=== PATIENT | female | born 1930 | race Two or more races ===

== ENCOUNTER 2018-12-06 12:04 | Inpatient (IN) | payer MEDICARE ==
[~2018-12-06] VITALS: Ht 170.2 cm; Wt 96.6 kg
--- NOTE | 2018-12-06 12:20 | NUR ---
DR GONZALEZ AT BEDSIDE
--- NOTE | 2018-12-06 12:22 | NUR ---
[facility] [employer] [facility] , "[place]ambulatory [place] bench passerby called." 5150 FOR BEING DANGER TO SELF AND GRAVELY DISABLED. TO ER BED 10, PT AOx1, HOOKED TO MONITOR, CHANGED TO GOWN, PROVIDED W WARM BLANKET, AWAITING MD YUAN.
[2018-12-06] MEDS ORDERED: IV NS 0.9% 1,000 ML BAG IV ONE (12:30)
--- NOTE | 2018-12-06 12:44 | NUR ---
ROTOR CASTING MACHINE OPERATOR AT BEDSIDE.
--- NOTE | 2018-12-06 12:47 | NUR ---
LEATHER DRESSER AT BEDSIDE
[2018-12-06 12:52] LABS: BASOPHILS # (AUTO) 0.1 /CMM (0.0-0.2); BASOPHILS % (AUTO) 1.1 % (0.0-2.0); EOSINOPHILS % (AUTO) 0.9 % (0.0-6.0); HEMATOCRIT 39 % (33-45); HEMOGLOBIN 12.7 g/dL (11.5-14.8); LYMPHOCYTES # (AUTO) 1.9 /CMM (0.8-4.8); LYMPHOCYTES % (AUTO) 19.1 % (20.0-44.0); MEAN CORPUSCULAR HGB CONC 33 g/dl (31.0-36.0); MEAN CORPUSCULAR VOLUME 93 fL (82-100); MONOCYTES # (AUTO) 0.8 /CMM (0.1-1.30); MONOCYTES % (AUTO) 7.7 % (2.0-12.0); NEUTROPHILS % (AUTO) 71.2 % (43.0-81.0); PLATELET COUNT (AUTO) 143 /CMM (150-450); RED BLOOD CELL COUNT(AUTO) 4.17 MIL/uL (4.0-5.2); WHITE BLOOD COUNT (AUTO) 9.9 K/uL (4.3-11.0)
[2018-12-06 12:58] LABS: CALCIUM, SERUM 9.8 mg/dL (8.5-10.1); CARBON DIOXIDE 26 mmol/L (21-32); CHLORIDE 106 mmol/L (98-107); CREATININE 2.3 mg/dL (0.6-1.3); GLUCOSE 107 mg/dL (74-106); POTASSIUM 3.7 mmol/L (3.5-5.1); SODIUM SERUM 141 mmol/L (136-145); UREA NITROGEN, BLOOD 49 mg/dL (7-18)
[2018-12-06] MEDS ORDERED: QUET25TA PO (13:00)
[2018-12-06] MEDS ORDERED: LISI-603 PO (13:00)
[2018-12-06] MEDS ORDERED: FURO40TA5 PO (13:00)
[2018-12-06 13:03] LABS: ALANINE AMINOTRANSFERASE 33 U/L (12-78); ALBUMIN 3.2 g/dL (3.4-5.0); ALCOHOL, BLOOD < 3 mg/dL (0-0); ALKALINE PHOSPHATASE 85 U/L (46-116); ASPARTATE AMINOTRANSFERASE 54 U/L (15-37); BILIRUBIN,DIRECT 0.2 mg/dL (0.0-0.2); BILIRUBIN,TOTAL 0.6 mg/dL (0.2-1.0); TOTAL PROTEIN, SERUM 6.9 g/dL (6.4-8.2)
[2018-12-06 13:05] LABS: ALANINE AMINOTRANSFERASE 32 U/L (12-78); ALBUMIN 3.2 g/dL (3.4-5.0); ALKALINE PHOSPHATASE 85 U/L (46-116); ASPARTATE AMINOTRANSFERASE 51 U/L (15-37); BILIRUBIN,DIRECT 0.2 mg/dL (0.0-0.2); BILIRUBIN,TOTAL 0.6 mg/dL (0.2-1.0); TOTAL PROTEIN, SERUM 6.9 g/dL (6.4-8.2)
--- NOTE | 2018-12-06 13:10 | NUR ---
PT WHEELED OUT VIA [facility] FOR CT SCAN
--- NOTE | 2018-12-06 15:13 | NUR ---
REPORT GIVEN TO MS GREGORY OF [facility]
--- NOTE | 2018-12-06 15:25 | NUR ---
WHEELED OUT VIA [facility] BY TECH TO [facility]
[2018-12-06 15:30] VITALS: BP 130/55
[2018-12-06] MEDS ORDERED: MAG HYDROX/AL HYDROX/SIMETH 30 ML UDC PO PRN (15:30)
[2018-12-06] MEDS ORDERED: TEMAZEPAM 7.5 MG CAPSULE PO PRN (15:30)
[2018-12-06] MEDS ORDERED: MAGNESIUM HYDROXIDE 30 ML UDC PO PRN (15:30)
[2018-12-06] MEDS ORDERED: clonazePAM 0.5 MG TABLET PO PRN (15:30)
[2018-12-06] MEDS ORDERED: ACETAMINOPHEN 325 MG TABLET PO PRN (15:30)
[2018-12-06 16:00] VITALS: BP 130/55
--- NOTE | 2018-12-06 17:38 | NUR ---
RN-CO: PAGED DR MENDOZA TO RECONCILE HOME MEDICATIONS.
[2018-12-06] MEDS: FUROSEMIDE 40 MG TABLET PO SCH (18:44)
[2018-12-06 20:14] VITALS: BP_SYST 150; BP_SYST 57; BP_DIAS 42; BP_DIAS 60
[2018-12-06] MEDS: VITAMINS A AND D 56.7 GM TUBE TP SCH (21:20)
[2018-12-07 07:01] LABS: ALANINE AMINOTRANSFERASE 32 U/L (12-78); ALBUMIN 2.8 g/dL (3.4-5.0); ALKALINE PHOSPHATASE 72 U/L (46-116); ASPARTATE AMINOTRANSFERASE 44 U/L (15-37); BILIRUBIN,TOTAL 0.6 mg/dL (0.2-1.0); CALCIUM, SERUM 9.4 mg/dL (8.5-10.1); CARBON DIOXIDE 25 mmol/L (21-32); CHLORIDE 107 mmol/L (98-107); CREATININE 1.4 mg/dL (0.6-1.3); GLUCOSE 95 mg/dL (74-106); POTASSIUM 3.3 mmol/L (3.5-5.1); SODIUM SERUM 143 mmol/L (136-145); TOTAL PROTEIN, SERUM 6.1 g/dL (6.4-8.2); UREA NITROGEN, BLOOD 38 mg/dL (7-18)
[2018-12-07 07:09] LABS: CHOLESTEROL 145 mg/dL (<200); HDL CHOLESTEROL 37 mg/dL (40-60); LDL 89 mg/dL (0-99); TRIGLYCERIDES 98 mg/dL (30-150)
[2018-12-07 08:00] VITALS: BP 111/54
[2018-12-07] MEDS: FUROSEMIDE 40 MG TABLET PO SCH (09:48)
[2018-12-07] MEDS: VITAMINS A AND D 56.7 GM TUBE TP SCH ×2 (09:48→21:41)
[2018-12-07] MEDS: LISINOPRIL (20MG) 20 MG TABLET PO SCH (09:48)
[2018-12-07] MEDS ORDERED: POTASSIUM CHLORIDE 20 MEQ TAB.PRT.SR PO SCH (10:30)
--- NOTE | 2018-12-07 12:15 | NUR ---
NURSING NOTE: RECEIVED CALL FROM LAB REGARDING CRITICAL VALUE FOR CK-MB OF 14.5. DR. MENDOZA HAS BEEN NOTIFIED AND ORDERED TROPONIN LEVEL STAT. DR. HASSAN HAS BEEN NOTIFIED WELL AND ORDER FOR EKG X3 DAYS HAS BEEN ORDERED FOR PROLONGED QTC OF 533. WILL CONTINUE TO MONITOR FOR SAFETY.
[2018-12-07] MEDS ORDERED: POTASSIUM CHLORIDE 20 MEQ TAB.PRT.SR PO ONE (13:00)
[2018-12-07 16:00] VITALS: BP 114/93
[2018-12-07 20:34] VITALS: BP 94/35
[2018-12-07] MEDS: OLANZAPINE 2.5 MG TABLET PO SCH (21:42)
[2018-12-07] MEDS ORDERED: QUETIAPINE FUMARATE 25 MG TABLET PO SCH (22:00)
[2018-12-08 08:00] VITALS: BP 100/58
[2018-12-08] MEDS: LISINOPRIL (20MG) 20 MG TABLET PO SCH (09:00)
[2018-12-08] MEDS: FUROSEMIDE 40 MG TABLET PO SCH (10:17)
[2018-12-08] MEDS: VITAMINS A AND D 56.7 GM TUBE TP SCH ×2 (10:18→21:37)
--- NOTE | 2018-12-08 11:30 | NUR ---
PT. RELOCATED TO RM. 215-2.VERBALIZED BEING UPSET ABOUT HOLD.
--- NOTE | 2018-12-08 15:43 | NUR ---
[facility] Group Session --- Goal: Patient will attend group being held today from 11am -11:45 in the activities room and participate and/or actively listen to peers and be respectful. Intervention: SW facilitated group session with patients regarding the goal or positive outcome/s pt. would like to see happen as a result of their stay in [facility]. SW used reflecting skills and encouraged patient to inform her associate financial planner that she would like to return to previous placement. SW validated the pt.'s difficulty in keeping responsible libertarian informed of her whereabouts and stressed the importance of it nonetheless. Response: Patient was agreeable to participating in group. Patient was alert and oriented. Per patient, her overall goal is to return to previous placement. Patient expressed being content with previous placement ([facility]) and hopes she may return post-discharge. Patient stated having difficulty �telling people where I�m going�. Per patient, she feels the lack of communication might be a problem and hopes she can practice better communication skills as a result of her stay here. Patient expressed understanding the importance of keeping responsible libertarian updated with her whereabouts. Patient presented respectful of her peers and interacted with peers adequately. Patient remained calm and cooperative throughout group session. Plan: Patient will be invited to attend next social worker psychiatric group held.
[2018-12-08 16:00] VITALS: BP 124/103
--- NOTE | 2018-12-08 18:00 | NUR ---
NO CHANGE IN STATUS.
[2018-12-08 19:51] VITALS: BP 118/54
[2018-12-08] MEDS: OLANZAPINE 2.5 MG TABLET PO SCH (21:32)
[2018-12-09 08:00] VITALS: BP 120/56
[2018-12-09] MEDS: LISINOPRIL (20MG) 20 MG TABLET PO SCH (08:19)
[2018-12-09] MEDS: FUROSEMIDE 40 MG TABLET PO SCH (08:19)
[2018-12-09] MEDS: VITAMINS A AND D 56.7 GM TUBE TP SCH ×2 (08:20→20:14)
--- NOTE | 2018-12-09 11:17 | NUR ---
CHERISE contacted Lamar, medical administrator at [facility] [address] [facility] [address] who verified that pt currently lives there and is able to return once stable for discharge. Lamar,. stated that pt got lost after she got on a bus.
--- NOTE | 2018-12-09 11:58 | NUR ---
INITIAL DISCHARGE NOTE: Patient wishes to return to Independent Living facility. CHERISE contacted Lamar, claim administrator at [facility] [address] [place] [address] who verified that pt currently lives there and is able to return once stable for discharge.CHERISE will help form a safe and proper discharge in collaboration with .
[2018-12-09 16:30] VITALS: BP 125/70
[2018-12-09 20:00] VITALS: BP 111/52
[2018-12-09] MEDS: OLANZAPINE 2.5 MG TABLET PO SCH (21:36)
[2018-12-10 08:00] VITALS: BP 131/72
[2018-12-10] MEDS: FUROSEMIDE 40 MG TABLET PO SCH (08:34)
[2018-12-10] MEDS: LISINOPRIL (20MG) 20 MG TABLET PO SCH (08:34)
[2018-12-10] MEDS: VITAMINS A AND D 56.7 GM TUBE TP SCH ×2 (08:34→20:11)
--- NOTE | 2018-12-10 08:46 | NUR ---
WOUND CARE CONSULT: PT PRESENTS WITH LEFT LOWER LEG DRY SCAB, PRESENT ON ADMISSION. NO DRAINAGE OR TENDERNESS NOTED. PT IS AMBULATORY AND CONTINENT. WILL SEE PRN.
--- NOTE | 2018-12-10 15:17 | NUR ---
CHERISE contacted Lamar, logistics administrator at [facility] [address] [place] [address] to inform her pt will be discharged via taxi on Thursday12/11/18 at 12:00pm. Lamar, agreed with discharge plan
--- NOTE | 2018-12-10 15:18 | NUR ---
DISCHARGE NOTE: Pt will be discharged on Thursday12/10/18 at 12:00pm via [facility] to [facility] [address] [facility] [address] . Pt has no family to notify. Pts mood is euthymic with congruent affect. Pt denied visual/auditory hallucinations and denied suicidal/homicidal ideation. Pt was referred to [facility] Address: [address] [place] [address] and will follow up on Thursday12/13/18 before 5:00pm for an intake. Pt was also referred to [facility] Address: [address] [place] [address] . The multidisciplinary exit care form was done, printed, signed, and given to the patient. Addendum: 12/10/18 at 1525 by JOSE ROBERTO LUONG For smoking cessation, patient was referred to the [employer] and [employer] [id number]. Pt will also participate in a telephone meeting with [facility] [phone] on Thursday12/13/18 at 8:00am
[2018-12-10 16:00] VITALS: BP 124/65
[2018-12-10 20:00] VITALS: BP 132/63
[2018-12-10] MEDS: OLANZAPINE 2.5 MG TABLET PO SCH (21:27)
[2018-12-11 08:00] VITALS: BP 142/80
[2018-12-11 08:06] VITALS: BP 142/80
[2018-12-11] MEDS: FUROSEMIDE 40 MG TABLET PO SCH (08:06)
[2018-12-11] MEDS: LISINOPRIL (20MG) 20 MG TABLET PO SCH (08:06)
[2018-12-11] MEDS: VITAMINS A AND D 56.7 GM TUBE TP SCH (08:09)
--- NOTE | 2018-12-11 08:39 | NUR ---
DR. HASSAN GAVE AN ORDER TO D/C HOLD AND D/C TO [facility] AND TO FOLLOW UP WITH PSYCH AND MEDICAL DOCTORS. Addendum: 12/11/18 at 1126 by ALEJANDRA MORALES RN CALLED [facility] AT [phone] AND SPOKE TO ZIYAD AND SAID SHE CAN COME BACK TODAY.
--- NOTE | 2018-12-11 13:02 | NUR ---
HOT WORKER NOTE: PATIENT IS A 88 YEAR OLD FEMALE DSICHARGED TO [facility] [address] [facility] [address] . PATIENT IS IN STABLE CONDITION. VSS. NO ACUTE DISTRESS NOTED. NO COMPLAINTS. COMPLIANT WITH MEDICATION MANAGEMENT. COOPERATIVE WITH PLAN OF CARE. PSYCHIATRIC TREATMENT PLANS MET. MEDICAL TREATMENT PLANS DEFERRED FOR CONTINUAL MONITORING. DENIES SI/HI VAH AT THE TIME OF DISCHARGE. WOUND PICTURES TAKEN AND DOCUMENTED IN CHART. EDUCATED PATIENT ABOUT AFTERCARE WITH COPY PROVIDED. RETURNED PERSONAL BELONGINGS TO PATIENT. MEDICATIONS RECONCILED WITH JESSICA SKELTON AND DR. HASSAN ALONG WITH PSYCHIATRIC DISCHARGE ORDERS. DISCHARGE PAPERWORK SIGNED. FOR FOLLOW UP WITH PSYCHIATRIST KAVYA [facility]ER[facility] [place] [address] [facility] [address] AND LINE MAINTAINER AT [facility] [place] [address] [facility] [address] . PATIENT LEFT THE [facility] AT 1300 VIA [facility].
== END 2018-12-11 13:00 | disposition home or self-care (01) | DRG 885 ==
LOC: ER 12:06 → GPS 15:01
PROVIDERS: ADMIT Psychiatry & Neurology Psychiatry; ATTEND Nurse Practitioner Acute Care
DX: F29 Unspecified psychosis not due to a substance or known physiological condition (principal); N17.0 Acute kidney failure with tubular necrosis; Z59.0 Homelessness; I10 Essential (primary) hypertension; Z79.899 Other long term (current) drug therapy; Z73.6 Limitation of activities due to disability; E87.6 Hypokalemia; F03.90 Unspecified dementia, unspecified severity, without behavioral disturbance, psychotic disturbance, mood disturbance, and anxiety; F17.210 Nicotine dependence, cigarettes, uncomplicated; D69.6 Thrombocytopenia, unspecified; R74.0 Nonspecific elevation of levels of transaminase and lactic acid dehydrogenase [LDH]
CPT/HCPCS: 36415; 70450-TC; 71045-TC; 80048-TC; 80053-TC; 80061-TC; 80076-TC; 80305; 82550-TC; 82962-TC; 84484-TC; 85025-TC; 87081-TC; 97116-TC; 97530-TC; 97535-TC; G0480; J7030